=== PATIENT | male | born 1970 | race Caucasian/White ===

== ENCOUNTER 2017-12-24 09:30 | Outpatient (RCR) | payer MEDICARE, MEDICAID, SELFPAY ==
--- NOTE | 2017-09-29 12:32 | HP.PTREVAL_ITS ---
Rox Lundberg, It has been my pleasure to treat RITU JAY over the last 7 visits for CEREBRALL PALSEY. Please see the progress note below for an update on the physical therapy plan of care! Subjective: Transfer are getting better . No falls. Doesnt extress pain Objective/Function: POSTURE: POSTERIOR PELVIC TILT. TRANSFERS: SUPERVSION W/C - MAT. MMT: 1/5 BLE. W/C MOBLITY INDEPEDANT. PROM: : KNEE EXTENSION 45 DEGREES FROM 0 Plan Plan: CONT 1XWEEK FOR 5WEEKS Goals Goal 1:: Patient decrease pain Bilateral knees by 40% or greater to improve function. Goal Time Frame: 4-6 Weeks Goal Progress: Progressing Goal 2:: Patient improve PROM knee extension 40 degrees or less to improve function and make transfers easier. Goal Time Frame: 4-6 Weeks Goal Progress: Goal Met Goal 3:: Patient increase strength BLE 2/5 to improve transfwers easier. Goal Time Frame: 4-6 Weeks Goal Progress: Progressing Goal 4:: Provide education to caregiver to assist with ADLS' Goal Time Frame: 4-6 Weeks Goal Progress: Progressing Anticipated Interventions Patient/Client Instruction: Educate patient on: Condition, Plan of Care For the Purpose of:: To improve muscle performance and motor function, To improve ability to perform ADL's, To increase tolerance to activity/condition/ position, To improve health of tissue, To decrease soft tissue restriction, To increase flexibility/ROM, To improve endurance, To improve health and function, To foster healthy habits, To facilitate caregiver knowledge, To improve tolerance to ADL's Therapeutic Exercise to Include: Strength training, Endurance training, In an aquatic setting, Passive ROM, Active ROM Comment: BLE For the Purpose of:: To improve muscle performance and motor function, To increase tolerance to activity/condition/position, To improve gait and locomotor functions, To decrease soft tissue restriction, To increase flexibility/ROM, To improve endurance, To improve tolerance to ADL's Please do not hesitate to contact me at [phone] by phone or Fax: if you have questions or concerns regarding this new plan of care! Sincerely, Yevgeniy Brenner PT,
--- NOTE | 2017-12-24 10:04 | HP.PTDCSUM ---
HP - PT D/C Summary It has been my pleasure to treat RITU JAY under orders from Rox Lundberg, for the diagnosis of CEREBRALL PALSEY for a total of 13 visit(s). Discharge Date: 12/24/17 Please see the following information for a summary of their discharge status. - Subjective Subjective: Aquatic helped to move better. ADL'S improved - Pain Bilateral Knee Pain Intensity (Out of 10): 0 - Overall Improvement % Improvement: 50 - Objective Objective/Function: POSTURE: posterior pelvic tilt rounded shoulders head foward. TRANSFER: supervision w/c-mat. BED MOBILITY: mod Independant. MMT: 09/25. PROM KNEE FLEXION 40 DEGREES. NEURO: hypertonicity LE - Goals Goal 1:: Patient decrease pain Bilateral knees by 40% or greater to improve function. Goal Progress: Progressing Goal 2:: Patient improve PROM knee extension 40 degrees or less to improve function and make transfers easier. Goal Progress: Goal Met Goal 3:: Patient increase strength BLE / to improve transfwers easier. Goal Progress: Progressing Goal 4:: Provide education to caregiver to assist with ADLS' Goal Progress: Progressing - Plan Plan: D/C - D/C Information If there are questions or concerns regarding this patient's physical therapy, please feel free to call me at [phone]. Thank you for the referral of this patient. Sincerely, Yevgeniy Brenner, PT,
== END 2017-12-24 10:00 | disposition home or self-care (01) ==
LOC: PT 09:30
PROVIDERS: Family Provider Internal Medicine Infectious Disease; PCP Internal Medicine Infectious Disease; Visit Provider Internal Medicine Infectious Disease
DX: G80.9 Cerebral palsy, unspecified (principal)
CPT/HCPCS: 97113; 97163; 97530; G8981; G8982

== ENCOUNTER 2023-08-12 09:45 | Outpatient (RCR) | payer MEDICARE, MEDICAID, SELFPAY ==
[2023-08-05 09:18] VITALS: BP 100/70; PULSE 67; RESP 18; TEMP 35.8; BMI 27.5
--- NOTE | 2023-08-05 11:57 | HP.PCM_ITS ---
History of Present Illness Date of Service: 08/05/23 Chief Complaint: Follow-up on his right knee wound History of Wound: 52-year-old MRDD patient that lives in [facility] and [place]. He constantly drops to his knees when he is being transferred. He has developed on both knees a form of like a skin flap. The right knee drained sometimes you can see that it has a center with a little bit of a scab over and where the skin has been pushed over you can see where there is like scabbing along the edge of the skin also. His aide states that the him worsening symptoms has been in the last few weeks but he has had these areas going on for Years. At this point he wears kneepads all during the day and they are off at night when he goes to bed [facility] Home Medications ascorbic acid (vitamin C) 500 mg capsule,extended release (Vitamin C) 1,000 mg PO DAILY 08/05/23 [History Last Taken Unknown] atenolol 50 mg tablet 50 mg PO DAILY 08/05/23 [History Last Taken Unknown] cholecalciferol (vitamin D3) 125 mcg (5,000 unit) tablet (Vitamin D3) 5,000 unit PO DAILY 08/05/23 [History Last Taken Unknown] cyanocobalamin (vitamin B-12) 1,000 mcg tablet (Vitamin B-12) 1,000 mcg PO DAILY 08/05/23 [History Last Taken Unknown] glucosamine-chondroitin 500 mg-400 mg tablet (Cosamin DS) 2 tab PO DAILY 08/05/23 [History Last Taken Unknown] levothyroxine 75 mcg capsule 75 mcg PO DAILY 08/05/23 [History Last Taken Unknown] losartan 50 mg tablet 50 mg PO DAILY 08/05/23 [History Last Taken Unknown] magnesium 250 mg tablet 250 mg PO DAILY 08/05/23 [History Last Taken Unknown] omega 4-vgb-llj-fish oil 1,000 mg (120 mg-180 mg) capsule (Fish Oil) 1 cap PO D AILY 08/05/23 [History Last Taken Unknown] polyethylene glycol 3350 PO 08/05/23 [History Last Taken Unknown] sennosides 8.6 mg-docusate sodium 50 mg capsule (Senna Plus) 1 tab-cap PO BID 08/05/23 [History Last Taken Unknown] Social History Smoking Status: Never smoker ROS Constitutional Constitutional: Reports systems reviewed and no addt'l complaints, except as documented Eyes Eyes: Reports systems reviewed and no addt'l complaints, except as documented ENT HEENT: Reports systems reviewed and no addt'l complaints, except as documented Cardiovascular Cardiovascular: Reports systems reviewed and no addt'l complaints, except as documented Respiratory/Chest Respiratory/Chest: Reports systems reviewed and no addt'l complaints, except as documented Gastrointestinal Gastrointestinal: Reports systems reviewed and no addt'l complaints, except as documented Genitourinary Genitourinary: Reports systems reviewed and no addt'l complaints, except as documented Musculoskeletal Musculoskeletal: Reports systems reviewed and no addt'l complaints, except as documented Integumentary Integumentary: Reports wounds and other Details: Skin flap right knee with an open area in the center Neurologic Neurologic: Reports systems reviewed and no addt'l complaints, except as documented Psychiatric Psychiatric: Reports systems reviewed and no addt'l complaints, except as docume nted Endocrine Endocrinology: Reports systems reviewed and no addt'l complaints, except as documented Hematologic/Lymphatic Hematologic/Lymphatic: Reports systems reviewed and no addt'l complaints, except as documented Allergic/Immunologic Allergic/Immunologic: Reports systems reviewed and no addt'l complaints, except as documented Vital Signs Vital Signs Vital Signs: 08/05/23 09:18 Temperature 96.4 F L Temperature Source Temporal Pulse Rate 67 Respiratory Rate 18 Blood Pressure 100/70 Blood Pressure Mean 80 Blood Pressure Source Monitor Blood Pressure Position Sitting Blood Pressure Location Left Arm Oxygen Delivery Method Room Air Weight Weight: 203 lb Body Mass Index (BMI) 27.5 Physical Exam Const oriented x3 General Appearance: cooperative HEENT normocephalic Head and Scalp: normal to inspection Face and Sinus: normal facial exam Nose: external nose normal External Ear: external ears normal Eyes General Eye: normal appearance of both eyes Neck full ROM Resp normal respiratory effort Effort and Inspection: able to speak in complete sentences Auscultation: clear to auscultation bilaterally Cardio regular rate and regular rhythm Palpation: normal PMI Rate: regular rate Rhythm: regular rhythm Extremity General Extremity: normal exam except as noted Skin Skin Narrative: Developed a skin flap on his knee with center opening that drains periodically with crusting on the tibial tuberosity Neuro Sensorium / Orientation: awake and orientation impaired Meningeal Signs: no meningeal signs Speech: speech normal Gait (Neuro): assistive device used Psych speech normal Psych Narrative: Patient has MRDD and does not make good decisions Appearance: grossly normal Attitude: calm Speech: normal speech Insight: limited Judgement: limited Debridement Note Debridement Note Wound debrided: Right knee traumatic wound Type of Debridement: Excisional debridement Anesthesia Used: 5% Lidocaine Gel Depth: Down to and including healthy tissue Percentage of wound debrided: 100 Instrument Used: 3mm curette, #15 blade and - (Nippers) Tissue Removed: Devitalized tissue Severity: Limited To Skin Breakdown Amount of bleeding with debridement: Mild Bleeding Controlled with: Compression and gauze and Silver Nitrate Patient tolerated procedure: Patient tolerated procedure well Post-Debridement Measurements and Additional Note: Post-Debridement Measurements/Treatment - Nurse 1 - General Ulcer Assessment Start: 08/05/23 09:02 Freq: Status: Active Protocol: EMETERIO Activity Type Activity Date Activity User E-sign Co-sign Detail Recorded Client Recorded Date Recorded By Document 08/05/23 09:18 KW Desktop 08/05/23 09:38 KW 08/05/23 09:18 - Today's Visit Information Type of service Initial Visit Arrival Mode Wheelchair Accompanied by assistant child care teacher- Dee Coy Patient Identification Verified (Name & Yes ) Height and Weight Height 6 ft Weight 203 lb Weight in Pounds 203.0 lbs Weight Measurement Method Estimated by Staff Body Mass Index (BMI) 27.5 BMI Classification Overweight BSA - Stuart 2.14 Vital Signs Temperature (97.8 F-99.1 F) 96.4 F L Temperature Source Temporal Pulse Rate (60-100) 67 Pulse Location Monitor Respiratory Rate (12-18) 18 Respiratory rate source Observation Oxygen Delivery Method Room Air Blood Pressure (90/60-120/80) 100/70 Blood Pressure Mean 80 Source Monitor Position Sitting Blood Pressure Location Left Arm History Since Last Visit- (Skip if this is Patient's initial visit) Left Footwear Regular Shoe Right Footwear Regular Shoe Pain Scale: 0-10 Numeric Is Patient Pain Free? Yes Lower Extremity Assessment/ Foot Assessment/ Toe Nail Assessment Right -Hair Growth on Legs No -Hair Growth on Toes No -Temperature of Extremity Warm -Capillary Refill Less than 3 Seconds -Thick No -Discolored No -Deformed No -Improper Length & Hygeine No Communication Assessment Preferred language Egyptian Able to Read No Able to Write No Caregiver Communication Skills Unable To Read, Impairment Unable To Write Right Hearing Abillity Normal Left Hearing Abillity Normal Visual Assistive Devices Glasses Teaching Assessment Preferences Verbal,Written, Demonstration Barriers to Learning Unable to Comprehend, Knowledge Deficit,Low Literacy Readiness To Learn Excellent Willingness to Engage in Self Management High Activies Readiness to Engage in Self Management High Activities Anxiety Level Calm Cooperation Cooperative Perception Coherent Interest in Health Problem Asks Questions Education Importance Acknowledges Need Does Patient Smoke tobacco or other No substances Smoking Status Never smoker Is Patient Diabetic No Functional Assessment Recent Decline in Ability to Perform Bathing, Toileting Assistive Device With Patient Yes Culture/Sikh/[employer] Cultural/Sikh Needs that may affect No Treatment Plan Would you allow our hospital corn husker to No meet you for the purpose of spiritual/ emotional support? [employer] to contact place of yazidi No Teaching: Wound Center Welcome to the Wound Care Center English FLORES - Nurse 1 - General Ulcer Measurement Start: 08/05/23 09:02 Freq: Status: Active Protocol: Activity Type Activity Date Activity User E-sign Co-sign Detail Recorded Client Recorded Date Recorded By Document 08/05/23 09:18 KW Desktop 08/05/23 09:38 KW 08/05/23 09:18 Wound Center Nurse 1 #1 RT KNEE -Current Size (cm) - Length 0.1 -Current Size (cm) - Width 0.1 -Current Size (cm) - Depth 0.1 -Total Square Cm 0.01 -Photo Taken Yes -Exudate Amt None Present -Granulation Amt None Present (0 %) -Granulation Quality N/A -Necrosis Amt None Present (0 %) -Texture (Dee-wound Skin Appearance) Assessed,Callus ,Localized Edema -Moisture (Dee-wound Skin Appearance) Assessed -Color (Dee-wound Skin Appearance) Assessed -Ulcer Cleansing Soap and Water -Anesthetic Used 5% Lidocaine Gel Right Calf (cm) 30.5 Right Ankle (cm) 25.4 Left Calf (cm) 32.0 Left Ankle (cm) 25.7 WC - Nurse 2 - General Ulcer CM Notes Start: 08/05/23 09:02 Freq: Status: Active Protocol: Activity Type Activity Date Activity User E-sign Co-sign Detail Recorded Client Recorded Date Recorded By Document 08/05/23 09:51 MW Desktop 08/05/23 10:01 MW 08/05/23 09:51 Wound Center Nurse 2 #1 RT KNEE -Time 09:51 -Correct Patient Yes -Correct Side, Site, Position Yes -Correct Procedure Yes -Procedure Performed Yes -Type of Procedure Debridement -Clinical Debridement Subcutaneous -Tissue Removed Subcutaneous -Post Debridement (cm) - Length 0.3 -Post Debridement (cm) - Width 0.5 -Post Debridement (cm) - Depth 0.2 -Total Square (Post) (cm) 0.15 -Area of Debridement (cm) - Length 0.3 -Area of Debridement (cm) - Width 0.5 -Total Square (Area) (cm) 0.15 -Tunneling No -Undermining/Tunneling No -Circular Undermining No -Wound/Ulcer Outcome Not Healed -Ulcer Cleansing Rinsed/ Irrigated with Saline -Foul Odor after Cleansing No -Bioengineered Tissue No -Bleeding Controlled with Pressure -Treatment Response Procedure Tolerated Well -Offloading No -Debridement - Subq, 1st 20sq cm Yes Pain Scale: 0-10 Numeric Is Patient Pain Free? Yes - Nurse 3 - General Ulcer D/C NN Start: 08/05/23 09:02 Freq: Status: Active Protocol: Activity Type Activity Date Activity User E-sign Co-sign Detail Recorded Client Recorded Date Recorded By Document 08/05/23 10:06 [facility] Desktop 08/05/23 10:09 [facility] 08/05/23 10:06 Wound Care Center Nurse 3 #1 RT KNEE -Ulcer Cleansing Rinsed/ Irrigated with Saline -Foul Odor after Cleansing No -Primary Dressing Applied Fibracol Plus 4x4,Mepilex Border -Fibracol Plus 4x4 1 -Mepilex Border 2 Treatment Response Procedure Tolerated Well Pain Scale: 0-10 Numeric Is Patient Pain Free? Yes - Visit Discharge Discharge Condition Stable Ambulatory Status Ambulatory Transportation Private Auto Assessment/Plan Assessment/Plan (1) Nonhealing nonsurgical wound: CODE(S): T14.8XXA - Other injury of unspecified body region, initial encounter (2) Traumatic skin ulcer: CODE(S): L98.499 - Non-pressure chronic ulcer of skin of other sites with unspecified severity QUALIFIERS: Non-pressure ulcer stage: unspecified non-pressure ulcer stage Qualified Code(s): L98.499 - Non-pressure chronic ulcer of skin of other sites with unspecified severity PLAN: Wash the right knee with antibacterial soap apply Fibracol to the wound base moistened cover with absorbent dressing every day Follow-up in 1 week Cultures obtained will call with results in 3 to 5 days
[2023-08-12 10:06] VITALS: BP 131/70; PULSE 69; RESP 18; TEMP 35.9; BMI 27.5
--- NOTE | 2023-08-12 12:33 | PN.PCM_ITS ---
History of Present Illness Date of Service: 08/12/23 Chief Complaint: Follow-up on his right knee wound History of Wound: 52-year-old MRDD patient that lives in [facility] and [place]. He constantly drops to his knees when he is being transferred. He has developed on both knees a form of like a skin flap. The right knee drained sometimes you can see that it has a center with a little bit of a scab over and where the skin has been pushed over you can see where there is like scabbing along the edge of the skin also. His aide states that the him worsening symptoms has been in the last few weeks but he has had these areas going on for Years. At this point he wears kneepads all during the day and they are off at night when he goes to bed Progress of Wound: Today the wound is almost healed patient has been using Fibracol to the area and is tolerating it very well he did have a staph infection grow we have him on oral antibiotics at this time which is shown improvement. They have bought him a new knee pad and I told him they can actually wash those on a monthly basis and air dry him. Subjective Subjective Insurance Inspector was in agreement since he mentally is not capable of answering appropriately. Objective Data Objective Data Again measurements are smaller looks good no sign of infection now is on an oral antibiotic tolerating treatment well every once happy with outcomes. Vital Signs: Vital Signs Temp Pulse Resp BP O2 Del Method 96.7 F L 69 18 131/70 H Room Air 08/12/23 10:06 08/12/23 10:06 08/12/23 10:06 08/12/23 10:06 08/05/23 09:18 Oxygen Delivery Method Room Air Weight: 203 lb Body Mass Index (BMI) 27.5 Lab / Micro Data Micro: Microbiology 08/05/23 09:50 Wound - Knee Gram Stain - Final 08/05/23 09:50 Wound - Knee Wound Culture - Final Staphylococcus epidermidis 08/05/23 09:50 Wound - Knee Anaerobic Culture - Final No anaerobic bacteria isolated. Physical Exam Const oriented x3 General Appearance: cooperative HEENT normocephalic Head and Scalp: normal to inspection Face and Sinus: normal facial exam Nose: external nose normal External Ear: external ears normal Eyes General Eye: normal appearance of both eyes Neck full ROM Resp normal respiratory effort Effort and Inspection: able to speak in complete sentences Auscultation: clear to auscultation bilaterally Cardio regular rate and regular rhythm Palpation: normal PMI Rate: regular rate Rhythm: regular rhythm Extremity General Extremity: normal exam except as noted Skin Skin Narrative: Developed a skin flap on his knee with center opening that drains periodically with crusting on the tibial tuberosity Neuro Sensorium / Orientation: awake and orientation impaired Meningeal Signs: no meningeal signs Speech: speech normal Gait (Neuro): assistive device used Psych speech normal Psych Narrative: Patient has MRDD and does not make good decisions Appearance: grossly normal Attitude: calm Speech: normal speech Insight: limited Judgement: limited Debridement Note Debridement Note Wound debrided: Right knee traumatic wound Type of Debridement: Excisional debridement Anesthesia Used: 5% Lidocaine Gel Depth: Down to and including healthy tissue Percentage of wound debrided: 100 Instrument Used: 3mm curette and - (Nippers) Tissue Removed: Devitalized tissue fibrin Severity: Limited To Skin Breakdown Amount of bleeding with debridement: Mild Bleeding Controlled with: Compression and gauze and Silver Nitrate Patient tolerated procedure: Patient tolerated procedure well Post-Debridement Measurements and Additional Note: Post-Debridement Measurements/Treatment - Nurse 1 - General Ulcer Assessment Start: 08/05/23 09:02 Freq: Status: Active Protocol: MARK.EWA Activity Type Activity Date Activity User E-sign Co-sign Detail Recorded Client Recorded Date Recorded By Document 08/05/23 09:18 KW Desktop 08/05/23 09:38 KW Document 08/12/23 10:06 RB Desktop 08/12/23 10:08 RB 08/05/23 08/12/23 09:18 10:06 - Today's Visit Information Type of service Initial Visit Follow-up Visit (Physician/UNDERWRITING CLERK ) Arrival Mode Wheelchair Wheelchair Transfer Assistance Manual Accompanied by residential care facility manager- Dee Coy Patient Identification Verified (Name & Yes Yes ) Patient Requires Transmission-Based No Precautions Height and Weight Height 6 ft Weight 203 lb Weight in Pounds 203.0 lbs Weight Measurement Method Estimated by Staff Body Mass Index (BMI) 27.5 27.5 BMI Classification Overweight Overweight BSA - Stuart 2.14 Vital Signs Temperature (97.8 F-99.1 F) 96.4 F L 96.7 F L Temperature Source Temporal Temporal Pulse Rate (60-100) 67 69 Pulse Location Monitor Monitor Respiratory Rate (12-18) 18 18 Respiratory rate source Observation Observation Oxygen Delivery Method Room Air Blood Pressure (90/60-120/80) 100/70 131/70 H Blood Pressure Mean (mm Hg) 80 90 Source Monitor Monitor Position Sitting Sitting Blood Pressure Location Left Arm Left Arm History Since Last Visit- (Skip if this is Patient's initial visit) Have you changed medications since your No last visit? Any new allergies or adverse reactions No Had a fall/change in ADL's that may No increase risk of falls Signs or symptoms of abuse and/or No neglect since last visit Have you been in the hospital since your No last visit? Has dressing in place as prescribed Yes Has compression in place as prescribed Yes Has offloadiing in place as prescribed No Experienced any changes in pain level or No management Left Footwear Regular Shoe Right Footwear Regular Shoe Pain Scale: 0-10 Numeric Is Patient Pain Free? Yes Yes Lower Extremity Assessment/ Foot Assessment/ Toe Nail Assessment Right -Hair Growth on Legs No -Hair Growth on Toes No -Temperature of Extremity Warm -Capillary Refill Less than 3 Seconds -Thick No -Discolored No -Deformed No -Improper Length & Hygeine No Communication Assessment Preferred language Slovak Able to Read No Able to Write No Caregiver Communication Skills Unable To Read, Impairment Unable To Write Right Hearing Abillity Normal Left Hearing Abillity Normal Visual Assistive Devices Glasses Teaching Assessment Preferences Verbal,Written, Demonstration Barriers to Learning Unable to Comprehend, Knowledge Deficit,Low Literacy Readiness To Learn Excellent Willingness to Engage in Self Management High Activies Readiness to Engage in Self Management High Activities Anxiety Level Calm Cooperation Cooperative Perception Coherent Interest in Health Problem Asks Questions Education Importance Acknowledges Need Does Patient Smoke tobacco or other No substances Smoking Status Never smoker Is Patient Diabetic No Functional Assessment Recent Decline in Ability to Perform Bathing, Toileting Assistive Device With Patient Yes Culture/Christianity/Assurance Senior Cultural/Christianity Needs that may affect No Treatment Plan Would you allow our hospital overcoil stepper to No meet you for the purpose of spiritual/ emotional support? Assurance Senior to contact place of islam No Teaching: Wound Center Welcome to the Wound Care Center English FLORES - Nurse 1 - General Ulcer Measurement Start: 08/05/23 09:02 Freq: Status: Active Protocol: Activity Type Activity Date Activity User E-sign Co-sign Detail Recorded Client Recorded Date Recorded By Document 08/05/23 09:18 KW Desktop 08/05/23 09:38 KW Document 08/12/23 10:06 RB Desktop 08/12/23 10:08 RB 08/05/23 08/12/23 09:18 10:06 Wound Center Nurse 1 #1 RT KNEE -Combined with other wound No -Current Size (cm) - Length 0.1 0.1 -Current Size (cm) - Width 0.1 0.4 -Current Size (cm) - Depth 0.1 0.2 -Total Square Cm 0.01 0.04 -Photo Taken Yes -Tunneling No -Undermining/Tunneling No -Circular Undermining No -Exudate Amt None Present Medium -Exudate Type Serosanguineous -Wound Margin Distinct, Outline Attached -Granulation Amt None Present (0 Medium (34-66%) %) -Granulation Quality N/A [place] -Slough/Fibrin Yes -Necrosis Amt None Present (0 Medium (34-66%) %) -Necrotic Tissue Type Adherent Slough -Structure Exposed N/A -Texture (Dee-wound Skin Appearance) Assessed,Callus Assessed ,Localized Edema -Moisture (Dee-wound Skin Appearance) Assessed Assessed -Color (Dee-wound Skin Appearance) Assessed Assessed -Temperature (Dee-wound Skin No Abnormality Appearance) (Pt Warm) -Tenderness on Palpation (Dee-wound No Skin Appearance) -Ulcer Cleansing Soap and Water Wound Cleanser -Foul Odor after Cleansing No -Anesthetic Used 5% Lidocaine 5% Lidocaine Gel Gel Right Calf (cm) 30.5 Right Ankle (cm) 25.4 Left Calf (cm) 32.0 Left Ankle (cm) 25.7 WC - Nurse 2 - General Ulcer CM Notes Start: 08/05/23 09:02 Freq: Status: Active Protocol: Activity Type Activity Date Activity User E-sign Co-sign Detail Recorded Client Recorded Date Recorded By Document 08/05/23 09:51 MW Desktop 08/05/23 10:01 MW Document 08/12/23 10:15 MW Desktop 08/12/23 10:20 MW 08/05/23 08/12/23 09:51 10:15 Wound Center Nurse 2 #1 RT KNEE -Time 09:51 10:15 -Correct Patient Yes Yes -Correct Side, Site, Position Yes Yes -Correct Procedure Yes Yes -Procedure Performed Yes Yes -Type of Procedure Debridement Debridement -Clinical Debridement Subcutaneous Subcutaneous -Tissue Removed Subcutaneous Subcutaneous -Post Debridement (cm) - Length 0.3 0.3 -Post Debridement (cm) - Width 0.5 0.3 -Post Debridement (cm) - Depth 0.2 0.2 -Total Square (Post) (cm) 0.15 0.09 -Area of Debridement (cm) - Length 0.3 0.3 -Area of Debridement (cm) - Width 0.5 0.3 -Total Square (Area) (cm) 0.15 0.09 -Tunneling No No -Undermining/Tunneling No No -Circular Undermining No No -Wound/Ulcer Outcome Not Healed Not Healed -Ulcer Cleansing Rinsed/ Rinsed/ Irrigated with Irrigated with Saline Saline -Foul Odor after Cleansing No No -Bioengineered Tissue No No -Bleeding Controlled with Pressure Pressure -Treatment Response Procedure Procedure Tolerated Well Tolerated Well -Offloading No No -Debridement - Subq, 1st 20sq cm Yes Yes Pain Scale: 0-10 Numeric Is Patient Pain Free? Yes Yes - Nurse 3 - General Ulcer D/C NN Start: 08/05/23 09:02 Freq: Status: Active Protocol: Activity Type Activity Date Activity User E-sign Co-sign Detail Recorded Client Recorded Date Recorded By Document 08/05/23 10:06 [employer] Desktop 08/05/23 10:09 [employer] Document 08/12/23 10:21 Desktop 08/12/23 10:22 MW 08/05/23 08/12/23 10:06 10:21 Wound Care Center Nurse 3 #1 RT KNEE -Ulcer Cleansing Rinsed/ Rinsed/ Irrigated with Irrigated with Saline Saline -Foul Odor after Cleansing No No -Negative Pressure Wound Therapy N/A -Primary Dressing Applied Fibracol Plus Fibracol Plus 4x4,Mepilex 4x4,Mepilex Border Border -Fibracol Plus 4x4 1 1 -Mepilex Border 2 1 Treatment Response Procedure Procedure Tolerated Well Tolerated Well Pain Scale: 0-10 Numeric Is Patient Pain Free? Yes Yes Teaching: Wound Center Dressing Your Wound -Person Taught Patient,Primary Caregiver -Teaching Method Discussion, Demonstration -Response to teaching Verbalize understanding WC - Visit Discharge Discharge Condition Stable Stable Ambulatory Status Ambulatory Wheelchair Transportation Private Auto Private Auto Accompanied by caregiver Medication Reconcilliation completed & No provided to patient/care provider Clinical Summary of Care Provided Yes Assessment/Plan Assessment/Plan (1) Nonhealing nonsurgical wound: CODE(S): T14.8XXA - Other injury of unspecified body region, initial encounter (2) Traumatic skin ulcer: CODE(S): L98.499 - Non-pressure chronic ulcer of skin of other sites with unspecified severity QUALIFIERS: Non-pressure ulcer stage: unspecified non-pressure ulcer stage Qualified Code(s): L98.499 - Non-pressure chronic ulcer of skin of other sites with unspecified severity PLAN: Wash the right knee with antibacterial soap apply Fibracol to the wound base moistened cover with absorbent dressing every day Follow-up in 2 week Finish the antibiotic therapy for his bacteria growth of staph.
== END 2023-08-20 23:59 | disposition home or self-care (01) ==
LOC: WC 09:45
PROVIDERS: PCP Internal Medicine Infectious Disease; Referring Provider Internal Medicine Infectious Disease; Visit Provider Nurse Practitioner
DX: S81.011A Laceration without foreign body, right knee, initial encounter (principal); Z79.899 Other long term (current) drug therapy; F79 Unspecified intellectual disabilities; W22.8XXA Striking against or struck by other objects, initial encounter
CPT/HCPCS: 11042; 87070; 87075; 87077; 87186; 87205; 99203; G0463

== ENCOUNTER 2023-09-02 09:42 | Outpatient (RCR) | payer MEDICARE, MEDICAID, SELFPAY ==
[2023-08-21 00:51] VITALS: BP 131/70; PULSE 69; RESP 18; TEMP 35.9; BMI 27.5
[2023-09-02 09:52] VITALS: BP 128/83; PULSE 71; RESP 18; TEMP 35.9; BMI 27.5
--- NOTE | 2023-09-02 10:42 | PN.PCM_ITS ---
History of Present Illness Date of Service: 09/02/23 Chief Complaint: Follow-up on his right knee wound History of Wound: 52-year-old MRDD patient that lives in [facility] and [place]. He constantly drops to his knees when he is being transferred. He has developed on both knees a form of like a skin flap. The right knee drained sometimes you can see that it has a center with a little bit of a scab over and where the skin has been pushed over you can see where there is like scabbing along the edge of the skin also. His aide states that the him worsening symptoms has been in the last few weeks but he has had these areas going on for Years. At this point he wears kneepads all during the day and they are off at night when he goes to bed Progress of Wound: Scab removed from right knee and is healed Subjective Subjective Gas Appliance Mechanic has no concerns patient still happy Objective Data Objective Data Wound is healed and patient will be discharged from the wound center follow-up as needed Vital Signs: Vital Signs Temp Pulse Resp BP 96.7 F L 71 18 128/83 H 09/02/23 09:52 09/02/23 09:52 09/02/23 09:52 09/02/23 09:52 Weight: 203 lb Body Mass Index (BMI) 27.5 Lab / Micro Data Attestation: I reviewed the patient's lab results. Physical Exam Const oriented x3 General Appearance: cooperative HEENT normocephalic Head and Scalp: normal to inspection Face and Sinus: normal facial exam Nose: external nose normal External Ear: external ears normal Eyes General Eye: normal appearance of both eyes Neck full ROM Resp normal respiratory effort Effort and Inspection: able to speak in complete sentences Auscultation: clear to auscultation bilaterally Cardio regular rate and regular rhythm Palpation: normal PMI Rate: regular rate Rhythm: regular rhythm Extremity General Extremity: normal exam except as noted Skin Skin Narrative: Developed a skin flap on his knee with center opening that drains periodically with crusting on the tibial tuberosity Neuro Sensorium / Orientation: awake and orientation impaired Meningeal Signs: no meningeal signs Speech: speech normal Gait (Neuro): assistive device used Psych speech normal Psych Narrative: Patient has MRDD and does not make good decisions Appearance: grossly normal Attitude: calm Speech: normal speech Insight: limited Judgement: limited Debridement Note Debridement Note No debridement was completed: No debridement was completed today Post-Debridement Measurements and Additional Note: Post-Debridement Measurements/Treatment - Nurse 1 - General Ulcer Assessment Start: 09/02/23 09:50 Freq: Status: Active Protocol: EMETERIO Activity Type Activity Date Activity User E-sign Co-sign Detail Recorded Client Recorded Date Recorded By Document 09/02/23 09:52 PL Tablet 09/02/23 09:56 PL 09/02/23 09:52 WC - Today's Visit Information Type of service Follow-up Visit (Physician/CREDIT CONTROL MANAGER ) Arrival Mode Wheelchair Transfer Assistance Manual Patient Identification Verified (Name & No ) Patient Requires Transmission-Based No Precautions Safety Precautions NA Height and Weight Body Mass Index (BMI) 27.5 BMI Classification Overweight Vital Signs Temperature (97.8 F-99.1 F) 96.7 F L Temperature Source Temporal Pulse Rate (60-100) 71 Respiratory Rate (12-18) 18 Blood Pressure (90/60-120/80) 128/83 H Blood Pressure Mean (mm Hg) 98 History Since Last Visit- (Skip if this is Patient's initial visit) Have you changed medications since your No last visit? Any new allergies or adverse reactions No Had a fall/change in ADL's that may No increase risk of falls Signs or symptoms of abuse and/or No neglect since last visit Have you been in the hospital since your No last visit? Has dressing in place as prescribed Yes Has compression in place as prescribed Yes Has offloadiing in place as prescribed Yes Experienced any changes in pain level or No management Pain Scale: 0-10 Numeric Is Patient Pain Free? Yes - Nurse 2 - General Ulcer CM Notes Start: 09/02/23 09:50 Freq: Status: Active Protocol: Activity Type Activity Date Activity User E-sign Co-sign Detail Recorded Client Recorded Date Recorded By Document 09/02/23 10:27 MW Desktop 09/02/23 10:28 MW 09/02/23 10:27 Wound Center Nurse 2 #1 RT KNEE -Time 10:27 -Correct Patient Yes -Correct Side, Site, Position Yes -Correct Procedure Yes -Procedure Performed No -Post Debridement (cm) - Length 0 -Post Debridement (cm) - Width 0 -Post Debridement (cm) - Depth 0 -Total Square (Post) (cm) 0 -Tunneling No -Undermining/Tunneling No -Circular Undermining No -Wound/Ulcer Outcome Healed- Epithelialized Pain Scale: 0-10 Numeric Is Patient Pain Free? Yes Assessment/Plan Assessment/Plan (1) Nonhealing nonsurgical wound: CODE(S): T14.8XXA - Other injury of unspecified body region, initial encounter (2) Traumatic skin ulcer: CODE(S): L98.499 - Non-pressure chronic ulcer of skin of other sites with unspecified severity QUALIFIERS: Non-pressure ulcer stage: unspecified non-pressure ulcer stage Qualified Code(s): L98.499 - Non-pressure chronic ulcer of skin of other sites with unspecified severity PLAN: Wound is resolved patient will follow-up as needed and is discharged from the wound center
== END 2023-09-03 16:14 | disposition home or self-care (01) ==
LOC: WC 09:42
PROVIDERS: PCP Internal Medicine Infectious Disease; Referring Provider Internal Medicine Infectious Disease; Visit Provider Nurse Practitioner
DX: Z09 Encounter for follow-up examination after completed treatment for conditions other than malignant neoplasm (principal); F79 Unspecified intellectual disabilities; Z79.899 Other long term (current) drug therapy
CPT/HCPCS: 99213; G0463